=== PATIENT | male | born 1965 | race Caucasian/White ===

== ENCOUNTER 2016-12-26 17:18 | Emergency (ER) | payer BC ==
[~2016-12-26 17:18] MED LIST: ACTOS; ACTOS45 MG; ADULT LOW DOSE81 M1 PO; AMARYL1 M1 PO; AMARYL2 MG PO; ASPIR 8181 MG PO; ASPIRIN325 M3 PO; ASPIRIN81 M1 PO; ASPIRIN81 MG PO; AVALIDE 300-12.1 TAB; AVALIDE 300-251 TAB; BACTRIM DS1 TA1 PO; BAYER81 MG; BENADRYL; BRILINTA90 M1 PO; BRINTELLIX5 MG PO; BYETTA10 MCG/0.0; CARVEDILOL25 MG PO; CELEXA10 M1 PO; CELEXA20 M1 PO; CEPHALEXIN500 M PO; COREG12.5 M1 PO; COREG25 MG; COREG25 MG PO; COREG6.25 M1 PO; COUMADIN5 M2 PO; COUMADIN7.5 M1 PO; COZAAR25 M1 PO; CRESTOR10 MG PO; CYPROHEPTADINE H4 MG PO; EC-NAPROSYN500 MG PO; EFFIENT10 MG PO; EFFIENT10 MG/TAB PO; FISH OIL 11000 MG/CA PO; FUROSEMIDE40 MG PO; GLIPIZIDE5 MG PO; GLUCAGON EMERGEN1 MG IM; GLUCOPHAGE1000 M1 PO; GLUCOPHAGE1000 MG PO; GLUCOPHAGE500 M1 PO; GLUCOPHAGE500 M3 PO; GLUCOPHAGE500 MG PO; HALFPRIN162 MG PO; IMDUR PO; IMDUR30 MG PO; LASIX40 MG PO; LASIX80 M1 PO; LEXAPRO20 MG PO; LIPITOR10 M1 PO; LISINOPRIL5 MG PO; LOPRESSOR50 MG; LOPRESSOR50 MG PO; LOVENOX100 MG/1 M SC; MAGNESIUM OXID400 M1 PO; METOPROLOL SUCC25 M1 PO; MICARDIS40 MG PO; MILRINONE IV; NIASPAN500 MG PO; NITROGLYCERIN0.4 MG SL; NORCO 5/325 TAB1 TAB PO; NORCO 7.5/325 T1 TAB PO; NORVASC10 MG; NORVASC10 MG PO; NORVASC5 MG; NOVOLOG100 UNITS/ SC; PEPCID; PEPCID20 MG; PLAVIX75 MG; POTASSIUM CHLO10 ME1 PO; PREDNISONE; PRILOSEC20 MG PO; PROTONIX40 M2 PO; PROZAC20 M3 PO; SPIRONOLACTONE25 M1 PO; TICLID250 MG; TORSEMIDE100 M1 PO; VENTOLIN HFA18 G2 INH; VENTOLIN HFA18 GM IH; VIAGRA PO; VICTOZA0.6 MG/0.1 SQ; VITAMIN D 22000 UNIT PO; VYTORIN 10/40 T1 TAB; VYTORIN 10/40 T1 TAB PO; XANAX; XANAX0.25 MG; XANAX0.5 M1 PO; ZESTRIL5 M1 PO
[2016-12-26] MEDS ORDERED: PERCOCET 5-3251 EACH PO (17:44)
[2016-12-26] MEDS ORDERED: LASIX40 M1 PO ×2 (17:49→18:16)
[2016-12-26] MEDS ORDERED: ZESTRIL5 M1 PO (17:49)
[2016-12-26] MEDS ORDERED: SILDENAFIL20 M2 PO (17:49)
[2016-12-26] MEDS ORDERED: COUMADIN6 M1 PO (17:50)
[2016-12-26 18:05] LABS: BASO % 0.1 % (0-2); EOS % 1.5 % (0-7); EOSINOPHIL ABSOLUTE COUNT 0.1 tho/cmm (0.0-0.7); HCT-HEMATOCRIT 28.2 % (36.0-53.5); HGB-HEMOGLOBIN 8.8 gm/dl (13.5-17.0); IMMATURE GRANULOCYTES ABSOLUTE 0.02 tho/cmm (0-0.03); IMMATURE GRANULOCYTES PERCENT 0.3 % (0-0.3); LYMPH % 14.4 % (20-45); MCH (MEAN CORPUSCULAR HGB) 27.8 pg (28.0-32.0); MCHC MEAN CORPUSCULAR HGB CONC 31.2 % (32.0-36.0); MEAN PLATELET VOLUME 8.7 cmc (9.4-12.4); MONO % 8.7 % (0-12); MONOCYTE ABSOLUTE COUNT 0.6 tho/cmm (0.0-1.2); NEUTROPHIL ABSOLUTE COUNT 5.1 tho/cmm (1.6-8.0); NEUTROPHIL-AUTOMATED 5.1 tho/cmm (1.6-8.0); PLATELET COUNT 361 tho/cmm (150-450); RED BLOOD COUNT 3.17 mil/cmm (4.40-5.70); WHITE BLOOD COUNT 6.8 tho/cmm (4.0-10.0)
[2016-12-26 18:12] LABS: INR 1.7 INR (0.9-1.1); PROTHROMBIN TIME 19.9 SECONDS (9.0-13.6)
[2016-12-26] MEDS ORDERED: EXTRA STRENGTH500 M1 PO (18:17)
[2016-12-26] MEDS ORDERED: LANTUS100 UNITS/ SC (18:18)
[2016-12-26] MEDS ORDERED: ALDACTONE50 M1 PO (18:18)
[2016-12-26 18:21] LABS: ANION GAP 11 mmol/L (0-20); BLOOD UREA NITROGEN 13 mg/dl (6-24); CALCIUM 8.8 mg/dl (8.5-10.5); CARBON DIOXIDE-VENOUS 29 mmol/L (22-32); CHLORIDE 107 mmol/l (96-110); CREATININE 1.09 mg/dl (0.60-1.30); GLUCOSE 136 mg/dL (70-110); POTASSIUM 3.6 mmol/L (3.7-5.1); SODIUM 143 mmol/L (135-145); eGFR VALUE FOR BLACK >90 mL/Min
== END 2016-12-26 20:14 ==
LOC: EDMED 17:18
PROVIDERS: Emergency Medicine
DX: R55 Syncope and collapse (principal); R42 Dizziness and giddiness; I11.0 Hypertensive heart disease with heart failure; E11.9 Type 2 diabetes mellitus without complications; E78.5 Hyperlipidemia, unspecified; K21.9 Gastro-esophageal reflux disease without esophagitis; Z95.5 Presence of coronary angioplasty implant and graft; Z79.4 Long term (current) use of insulin; Z79.01 Long term (current) use of anticoagulants; Z79.82 Long term (current) use of aspirin; Z79.899 Other long term (current) drug therapy
CPT/HCPCS: J1650

== ENCOUNTER 2017-01-04 13:23 | Emergency (ER) | payer BC ==
[~2017-01-04 13:23] MED LIST changes: +ALDACTONE50 M1 PO; +COUMADIN6 M1 PO; +EXTRA STRENGTH500 M1 PO; +LANTUS100 UNITS/ SC; +LASIX40 M1 PO; +PERCOCET 5-3251 EACH PO; +SILDENAFIL20 M2 PO
[2017-01-04] MEDS ORDERED: LOVENOX100 MG/1 M SC (14:00)
[2017-01-04] MEDS ORDERED: POTASSIUM CHLO20 ME3 PO (14:11)
[2017-01-04 14:46] LABS: BASO % 0.2 % (0-2); EOSINOPHIL ABSOLUTE COUNT 0.1 tho/cmm (0.0-0.7); HCT-HEMATOCRIT 30.2 % (36.0-53.5); HGB-HEMOGLOBIN 9.5 gm/dl (13.5-17.0); IMMATURE GRANULOCYTES ABSOLUTE 0.02 tho/cmm (0-0.03); IMMATURE GRANULOCYTES PERCENT 0.2 % (0-0.3); LYMPH % 14.6 % (20-45); LYMPH ABSOLUTE COUNT 1.3 tho/cmm (0.8-4.5); MCH (MEAN CORPUSCULAR HGB) 26.8 pg (28.0-32.0); MCHC MEAN CORPUSCULAR HGB CONC 31.5 % (32.0-36.0); MCV (MEAN CELL VOLUME) 85.3 fl (82.0-96.0); MEAN PLATELET VOLUME 9.4 cmc (9.4-12.4); MONO % 6.9 % (0-12); MONOCYTE ABSOLUTE COUNT 0.6 tho/cmm (0.0-1.2); NEUTROPHIL ABSOLUTE COUNT 6.6 tho/cmm (1.6-8.0); NEUTROPHIL-AUTOMATED 6.6 tho/cmm (1.6-8.0); NEUTROPHILS % 77.1 % (40-80); PLATELET COUNT 388 tho/cmm (150-450); RED BLOOD COUNT 3.54 mil/cmm (4.40-5.70); RED CELL DISTRIBUTION WIDTH 16.4 % (12.4-16.4); WHITE BLOOD COUNT 8.6 tho/cmm (4.0-10.0)
[2017-01-04 15:05] LABS: INR 3.4 INR (0.9-1.1); PROTHROMBIN TIME 40.7 SECONDS (9.0-13.6)
[2017-01-04 15:11] LABS: ANION GAP 13 mmol/L (0-20); BLOOD UREA NITROGEN 10 mg/dl (6-24); CARBON DIOXIDE-VENOUS 26 mmol/L (22-32); CHLORIDE 106 mmol/l (96-110); CREATININE 1.11 mg/dl (0.60-1.30); GLUCOSE 133 mg/dL (70-110); POTASSIUM 3.5 mmol/L (3.7-5.1); SODIUM 141 mmol/L (135-145); eGFR VALUE FOR BLACK 90 mL/Min
== END 2017-01-04 15:52 ==
LOC: EDMED 13:23
PROVIDERS: Emergency Medicine
DX: G45.9 Transient cerebral ischemic attack, unspecified (principal); R55 Syncope and collapse; Z95.811 Presence of heart assist device; Z88.8 Allergy status to other drugs, medicaments and biological substances; Z79.01 Long term (current) use of anticoagulants